=== PATIENT | female | born 1965 | race Caucasian/White ===

== ENCOUNTER 2020-11-01 06:01 | Day surgery (SDC) | payer BC ==
[2020-11-01] MEDS ORDERED: Lactated Ringers 1,000 ML IV ONE ×2 (06:38→07:53)
[2020-11-01] MEDS ORDERED: Lactated Ringers 1,000 ML IV SCH (07:00)
[2020-11-01] MEDS ORDERED: DIPRIVAN 200 MG/20 ML IV ONE (07:27)
--- NOTE | 2020-11-01 09:05 | OP ---
SURGERY DATE/TIME: 11/01/2020 0095 PREOPERATIVE DIAGNOSIS: Rectal bleeding. POSTOPERATIVE DIAGNOSIS: Sigmoid colon polyp. PROCEDURE: Colonoscopy with polypectomy. SURGEON: Dr. Iglesias. ANESTHESIA: MAC. Medications given by anesthesia department. HISTORY: The patient is a 55 year old white female presenting now for colonoscopy. The patient reports she has never had a colonoscopy previously done. She reports she has been having problems with rectal bleeding. The patient now presents for colonoscopic evaluation. The patient was appraised of the risks of the procedure including the risk of perforation, phlebitis, untoward reaction to medication, bleeding and missed lesions. The patient verbalized her understanding and desired to have the procedure performed. DESCRIPTION OF PROCEDURE: The patient was given the medications by the anesthesia department. She had continuous pulse oximetry, ECG monitoring, intermittent blood pressure monitoring and tidal CO2 monitoring during the examination. She was placed in the left lateral decubitus position. A digital rectal examination was performed and revealed normal anal sphincter tone and no masses. The flexible Olympus pediatric colonoscope was used to intubate the rectum. A view of the colon was developed sequentially to the cecum. Upon insertion and withdrawal was noted a fairly large sessile polyp with base approximately 1 cm in diameter. We used hot polypectomy snare to piecemeal portions of the polyp off for pathologic evaluation. She had a smaller approximately 1 cm polyp in the rectosigmoid area this was removed using polypectomy snare. Upon insertion and withdrawal including a retroflex view in the rectum, no other mucosal lesions were encountered. It was noted that the patient's polyp is quite thick and despite using cautery in combination with the hot polypectomy snare we were unable to completely remove the lesion. The patient will be sent for surgical evaluation for completing the procedure with polypectomy which might require operative removal.
[2020-11-01 09:07] VITALS: O2SAT 99
[2020-11-01 09:11] LABS: Hematocrit 42.9 % (35-47); Mean Cell Volume 93.7 fl (78-100); Mean Corpuscular Hemoglobin 30.6 pg (26-32); Mean Corpuscular Hgb Concent. 32.6 g/dl (32-36); Mean Platelet Volume 10.1 fl (7.5-11.0); Platelet Count 254 K/mm3 (150-450); Red Blood Count 4.58 M/mm3 (4.1-5.4); Red Cell Distribution Width 12.4 % (11.5-14.0); White Blood Count 7.3 K/mm3 (4.0-10.5)
[2020-11-01 09:22] VITALS: PULSE 91
[2020-11-01 10:31] VITALS: BP 137/82
--- NOTE | 2020-11-01 10:35 | XRAY ---
Indication: Polyp on colonoscopy. Multiple contiguous axial images obtained through the abdomen and pelvis using 80 cc Isovue 370 contrast. Comparison: None Lung bases demonstrates minimal atelectasis/scarring and 6 mm left lower lobe calcified granuloma. Additional 4 mm left lower lobe subpleural noncalcified nodule probably granulomatous. No infiltrate or effusion. Noncontrasted stomach and bowel loops appear nonobstructed. Normal appendix. Minimal sigmoid diverticulosis without diverticulitis. No free fluid/air. Gallbladder demonstrates tiny gallstones/gravel in the dependent portion. No abnormal biliary distention. Left mid abdomen demonstrates subcentimeter mesenteric nodes with stranding favoring adenitis. Remaining liver, pancreas, spleen, adrenal glands, kidneys, ureters, bladder, and uterus appear unremarkable. Minimal aortoiliac calcifications. No AAA or pathologic retroperitoneal lymphadenopathy. Osseous structures intact with mild/moderate degenerative changes throughout the spine, greatest L4-S1 levels. Impression: 1. Tiny gallstones/gravel better evaluated with sonogram if clinically warranted. 2. Tiny left mid abdomen mesenteric nodes with stranding favoring mesenteric adenitis. 3. Sigmoid diverticulosis without diverticulitis. 4. Left lower lobe calcified/noncalcified granulomatous nodules.
== END 2020-11-01 10:10 | disposition home or self-care (01) ==
LOC: SDC 06:01
PROVIDERS: ATTEND Family Medicine
DX: C18.7 Malignant neoplasm of sigmoid colon (principal); D12.3 Benign neoplasm of transverse colon; Z79.899 Other long term (current) drug therapy
CPT/HCPCS: 36415; 74177; 82378; 85027; J2704

== ENCOUNTER 2020-11-15 08:18 | Day surgery (SDC) | payer BC ==
--- NOTE | 2020-11-15 08:10 | HP ---
DATE OF SURGERY: 11/15/2020 HISTORY OF PRESENT ILLNESS: The patient is a 55 year-old who had a colonoscopy, had removal of colon cancer. She is in need of colonoscopy to evaluate if she is a candidate for resection first versus other treatments as well as mapping location prior to pursuing laparoscopic-assisted partial colectomy. PAST MEDICAL HISTORY: Hypertension. PAST SURGICAL HISTORY: Prior colonoscopy. Inclusion cyst removed from right axilla in the past. MEDICATIONS: Amlodipine. Benazepril. ALLERGIES: PENICILLINS. SULFA. FAMILY HISTORY: Negative in regards to this problem. SOCIAL HISTORY: No smoking and no alcohol abuse. REVIEW OF SYSTEMS: Fourteen systems reviewed negative or noncontributory as above and per preadmission questionnaire. PHYSICAL EXAMINATION: GENERAL: No acute distress. HEENT: Sclerae nonicteric. NECK: No JVD. CHEST: Equal excursion, nonlabored breathing. CVS: Regular rate and rhythm. ABDOMEN: Soft. No peritoneal signs. EXTREMITIES: No significant edema. NEURO: Alert, oriented, moving extremities symmetrically. No gross motor deficits noted. PSYCH: Appropriate mood and affect. IMPRESSION: Colon cancer follow up needed of left colon prior to doing resection. I feel she would benefit from flexible sigmoidoscopy and spot tattooing first to evaluate the location to determine whether proceeding with the resection first versus neoadjuvant treatment as well as mapping location. She agrees with the plan, will proceed with flexible sigmoidoscopy possible spot tattooing of location as an outpatient. General risk of bleeding or infection, risk of bowel injury or perforation possibly requiring open procedure, risk of sedation but not limited to. Consent obtained, will proceed with flexible sigmoidoscopy with spot tattooing of location as an outpatient.
[2020-11-15] MEDS ORDERED: Lactated Ringers 1,000 ML IV SCH (08:30)
[2020-11-15] MEDS ORDERED: DIPRIVAN 200 MG/20 ML IV ONE (10:13)
[2020-11-15] MEDS ORDERED: Xylocaine-Mpf 2% 5 Ml Vial ONE (10:14)
[2020-11-15 11:17] VITALS: O2SAT 98
[2020-11-15 11:53] VITALS: BP 140/82; PULSE 74
--- NOTE | 2020-11-15 13:23 | OP ---
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 PROCEDURES: 1) Flexible sigmoidoscopy. 2) Ink spot tattooing of distal sigmoid/rectosigmoid area of polypoid lesion previous biopsy confirmed carcinoma. SURGEON: Dr. Darrick Herr. ANESTHESIA: MAC. ESTIMATED BLOOD LOSS: Minimal. INDICATIONS: As noted above. Risks and benefits explained in detail and not limited to and consent obtained. It was felt she needed this evaluation to completely ascertain if there is not a lesion that needed neoadjuvant treatment as well as marking location to set up surgical intervention in the next two or three weeks. Consent had been obtained. DESCRIPTION OF PROCEDURE AND FINDINGS: The patient is taken to the operating room. MAC anesthesia was introduced. After official time out and no disagreement with planned procedure, digital rectal exam did not reveal any lower rectal masses. Video colonoscope inserted and passed up through the flat polypoid lesion. It was noted to be about 12 - 14 cm from the anal verge there appeared to be in the lower sigmoid to upper part of the rectosigmoid colon. Given the location and given the size it is felt it warranted ink spot tattooing as it is felt that this would be more beneficial proceeding with surgical resection rather than neoadjuvant treatment. A 1 cc in a couple different locations with the distal edge of this lesion carefully injected submucosally marking the location for eventual laparoscopic-assisted resection to be set up in the next two or three weeks. The patient tolerated the procedure well. She had already been biopsied. It was felt there was no benefit in rebiopsy at this point. It was confirmed that indeed this warranted surgical resection rather than neoadjuvant treatment first. The scope is withdrawn. The patient tolerated the procedure well. Findings discussed with family out in the waiting area.
== END 2020-11-15 11:50 | disposition home or self-care (01) ==
LOC: SDC 08:18
PROVIDERS: ATTEND Surgery
DX: Z09 Encounter for follow-up examination after completed treatment for conditions other than malignant neoplasm (principal); Z86.010 Personal history of colon polyps; C19 Malignant neoplasm of rectosigmoid junction; I10 Essential (primary) hypertension; Z79.899 Other long term (current) drug therapy
CPT/HCPCS: J2704

== ENCOUNTER 2021-06-13 08:52 | Day surgery (SDC) | payer BC ==
--- NOTE | 2021-06-13 08:02 | HP ---
DATE OF SURGERY: 06/13/2021 HISTORY OF PRESENT ILLNESS: The patient is a 56 year-old been eating well, had a laparoscopic-assisted lower anterior resection primary colorectal anastomosis. She is in need of short term follow up colonoscopy. She requested for oncologist. PAST MEDICAL HISTORY: Hypertension. History of colon cancer. PAST SURGICAL HISTORY: Right axillary cyst removed in the past. Endoscopy in the past. She had a laparoscopic-assisted lower anterior resection in the past with clear margins. MEDICATIONS: Amlodipine, benazepril. ALLERGIES: PENICILLIN. SULFA. FAMILY HISTORY: Negative in regards to this problem. SOCIAL HISTORY: No smoking or alcohol abuse. REVIEW OF SYSTEMS: Fourteen systems reviewed, negative or noncontributory as above and per preadmission questionnaire. PHYSICAL EXAMINATION: GENERAL: No acute distress. HEENT: Sclerae nonicteric. NECK: No JVD. CHEST: Equal excursion, nonlabored breathing. CVS: Regular rate and rhythm. ABDOMEN: Soft. No peritoneal signs. EXTREMITIES: No significant edema. NEURO: Alert, oriented, moving extremities symmetrically. RECTAL: Deferred timed to endoscopy exam. PSYCH: Appropriate mood and affect. IMPRESSION: History of colon cancer, need for follow up short term colonoscopy. Risks and benefits explained in detail including but not limited to bleeding or infection, risk of bowel injury or perforation possibly requiring open procedure, risk of missed or nondiagnosis or incomplete exam possibly requiring barium enema, other studies or procedures, general risk of anesthesia or sedation but not limited to, consent obtained. Will proceed with outpatient colonoscopy with MAC anesthesia.
[2021-06-13] MEDS ORDERED: Lactated Ringers 1,000 ML IV SCH (09:00)
[2021-06-13] MEDS ORDERED: Lactated Ringers 1,000 ML IV ONE (09:03)
[2021-06-13] MEDS ORDERED: DIPRIVAN 200 MG/20 ML IV ONE (11:14)
[2021-06-13 12:09] VITALS: O2SAT 95
[2021-06-13 12:20] VITALS: BP 119/72; PULSE 69
--- NOTE | 2021-06-14 09:14 | OP ---
SURGERY DATE/TIME: 06/13/2021 1117 PREOPERATIVE DIAGNOSIS: History of rectal cancer status post resection, need for follow up colonoscopy. POSTOPERATIVE DIAGNOSIS: Widely patent anastomosis. No evidence of gross cancer recurrence. PROCEDURES: 1) Colonoscopy to cecum. 2) Cold biopsy random cold biopsy of edge of colorectal mass. SURGEON: Dr. Darrick Herr. INFORMATION SECURITY: Angel Lawton, Medical Student III. ANESTHESIA: MAC. ESTIMATED BLOOD LOSS: Minimal. INDICATIONS: As noted above. Risks and benefits explained in detail but not limited to and consent obtained. DESCRIPTION OF PROCEDURE AND FINDINGS: The patient is taken to the operating room. MAC anesthesia introduced. After official time out and no disagreement with planned procedure, digital rectal exam did not reveal any cancer recurrence. Anastomosis could be palpated. Video colonoscope inserted and passed up around to the slightly tortuous colon around to the cecum. Appendiceal orifice and valve well visualized and photo documented. Prep overall was fair. ASA Class II. Scope slowly carefully withdrawn over the next 8 minutes. She had a lot of foamy stool and only a fair, limited prep. It took some time irrigating this out but there were no signs of any large polyps, masses or obstructing lesion. The scope pulled back to the anastomotic area that was widely patent, healing well. Random cold biopsies taken on the margin to rule out for any microscopic recurrence although there was no gross evidence of any macroscopic recurrence. The patient tolerated the procedure well. There were no immediate complications. I will see if her to discuss the findings with. Again, no gross macroscopic evidence of any recurrence.
== END 2021-06-13 12:25 | disposition home or self-care (01) ==
LOC: SDC 08:52
PROVIDERS: ATTEND Surgery
DX: Z08 Encounter for follow-up examination after completed treatment for malignant neoplasm (principal); Z85.048 Personal history of other malignant neoplasm of rectum, rectosigmoid junction, and anus; Z79.899 Other long term (current) drug therapy
CPT/HCPCS: 88305; J2704

== ENCOUNTER 2023-10-15 09:16 | Day surgery (SDC) | payer BC, OTHER ==
--- NOTE | 2023-10-15 08:25 | HP ---
DATE OF SURGERY: 10/15/2023 HISTORY OF PRESENT ILLNESS: The patient is a 58-year-old has history of cancer and a polyp in the past. Blood work was okay recently. Last colonoscopy more than five years ago and had small rectal bleeding on toilet paper once but no rectal bleeding. She is in need of follow up colonoscopy with history of colon cancer. PAST MEDICAL HISTORY: Colon cancer. Hypertension. PAST SURGICAL HISTORY: T&A. Colon resection in the past. She had endoscopy in the past. MEDICATIONS: Lisinopril, metoprolol. ALLERGIES: SULFA. PENICILLIN. FAMILY HISTORY: Negative. SOCIAL HISTORY: No smoking. Occasional alcohol use. REVIEW OF SYSTEMS: Twelve systems reviewed. No chest pain or palpitations. Other systems negative or noncontributory as above and per preadmission questionnaire. PHYSICAL EXAMINATION: Height 5 feet 8 inches. BMI 25. GENERAL: No acute distress. HEENT: Sclerae nonicteric. EOMI. Oral mucous membranes moist. NECK: No JVD. CHEST: Equal excursion, nonlabored breathing. CVS: Regular rate and rhythm. ABDOMEN: Soft. No peritoneal signs. EXTREMITIES: No significant edema. NEURO: Alert, oriented, moving extremities symmetrically. RECTAL: Deferred timed to endoscopy exam. PSYCH: Appropriate mood and affect. SKIN: Dry. IMPRESSION: History of colon cancer and polyp, history of rectal bleeding. The patient is in need of follow up colonoscopy. She was shown the risk sheet explained the procedure in detail including but not limited to risk of bleeding or infection, risk of bowel injury or perforation, risk of missed or nondiagnosis or incomplete exam possibly requiring barium enema, possible need for other procedures or referrals, risk of anesthesia or sedation, risk of bowel prep but not limited to. Will proceed with outpatient colonoscopy under MAC anesthesia. Otherwise continue medication for hypertension.
[2023-10-15] MEDS ORDERED: Lactated Ringers 1,000 ML IV ONE (09:27)
[2023-10-15] MEDS ORDERED: Lactated Ringers 1,000 ML IV SCH (10:30)
[2023-10-15] MEDS ORDERED: Xylocaine-Mpf 2% 5 Ml Vial ONE (11:46)
[2023-10-15] MEDS ORDERED: DIPRIVAN 200 MG/20 ML IV ONE (11:46)
[2023-10-15 12:51] VITALS: RESP 18; TEMP 97.7
[2023-10-15 12:59] VITALS: BP 133/90; PULSE 67; O2SAT 100
--- NOTE | 2023-10-15 14:31 | OP ---
SURGERY DATE/TIME: 10/15/2023 1154 PREOPERATIVE DIAGNOSIS: Prior history of colon cancer, history of polyps in the past, needs follow up screening colonoscopy. POSTOPERATIVE DIAGNOSES: 1) Small polyp ascending colon and transverse colon. 2) Fair but limited bowel prep. 3) ASA Class II. 4) Withdrawal time approximately ten minutes. PROCEDURES: 1) Colonoscopy to cecum. 2) Hot biopsy polypectomy small ascending colon polyp x2. 3) Hot snare polypectomy transverse colon polypectomy x1. SURGEON: Dr. Darrick Herr. ANESTHESIA: MAC. ESTIMATED BLOOD LOSS: Minimal. INDICATIONS: As noted above. Risks and benefits explained in detail but not limited to and consent obtained. DESCRIPTION OF PROCEDURE AND FINDINGS: The patient is taken to the endoscopy room. MAC anesthesia introduced. After official time out and no disagreement with planned procedure, digital rectal exam did not reveal any rectal masses. Video colonoscope inserted and passed up through the slightly tortuous sigmoid, descending, transverse and ascending colon around to the cecum. Appendiceal orifice and ileocecal valve well visualized and photo documented. Prep overall was on the fair to limited side with a moderate amount of liquidy, a little bit of semisolid stool throughout the colon this is suctioned and irrigated as clear as possible but did limit the exam for very small lesions. On withdrawal of the scope, there were two small 2 mm sized adenomatous appearing polyps pedunculated on two folds in proximal ascending colon removed with hot biopsy polypectomy. Good hemostasis noted. The scope is carefully pulled back around the proximal ascending colon. A 2.5 to 3 mm polyp removed with hot snare polypectomy with brief burst of cautery. Appeared to have adequate hemostasis at the end. Otherwise, the scope is carefully withdrawn suctioned and irrigating the liquidy stool out as well as possible. There were no signs of any large polyps, masses or obstructing lesions. Prior anastomotic area looked okay. No evidence of any regrowth or any recurrence. The scope is withdrawn. The patient tolerated the procedure well. There were no immediate complications. Findings discussed with the family out in the waiting area.
== END 2023-10-15 13:00 | disposition home or self-care (01) ==
LOC: SDC 09:16
PROVIDERS: ATTEND Surgery
DX: Z08 Encounter for follow-up examination after completed treatment for malignant neoplasm (principal); Z85.038 Personal history of other malignant neoplasm of large intestine; Z86.010 Personal history of colon polyps; D12.2 Benign neoplasm of ascending colon; D12.3 Benign neoplasm of transverse colon
CPT/HCPCS: J2704